=== PATIENT | female | born 1990 | race Caucasian/White ===

== ENCOUNTER 2023-09-28 13:53 | Emergency (ER) | payer OTHER ==
[2023-09-28 14:03] VITALS: BP 116/76; PULSE 96; RESP 20; TEMP 98; BMI 18.4
[2023-09-28] MEDS ORDERED: DEXAMETHASONE SOD PHOSPHATE 10 MG/1 ML VIAL ONE (15:23)
[2023-09-28] MEDS ORDERED: MAG HYDROX/AL HYDROX/SIMETH 30 ML UNIT-DOSE CUP ONE (15:23)
[2023-09-28] MEDS: MAG HYDROX/AL HYDROX/SIMETH 30 ML UNIT-DOSE CUP PO ONE (15:27)
[2023-09-28] MEDS: DEXAMETHASONE 4 MG TABLET (FP) PO ONE (15:28)
[2023-09-28 17:44] LABS: THROAT:GRP A STREP NOT DETECTED (NOTDETECTED)
== END 2023-09-28 15:28 | disposition home or self-care (01) ==
LOC: FER 13:53
DX: J02.9 Acute pharyngitis, unspecified (principal); B34.9 Viral infection, unspecified; R50.9 Fever, unspecified; R05.9 Cough, unspecified; R53.81 Other malaise; R59.0 Localized enlarged lymph nodes; Z20.822 Contact with and (suspected) exposure to COVID-19
CPT/HCPCS: 0241U-QW; 71046-TC-FY; 87651; 99284-25

== ENCOUNTER 2024-03-25 11:25 | Emergency (ER) | payer OTHER ==
[2024-03-25 11:32] VITALS: BP 115/69; PULSE 74; RESP 18; TEMP 98.2; BMI 20.7
[2024-03-25 12:32] LABS: HCG,QUALITATIVE URINE Negative
[2024-03-25 12:58] LABS: HEMATOCRIT 38.3 % (32.4-45.2); HEMOGLOBIN 12.9 G/dL (10.7-15.3); MCH 30.8 pg (25.7-33.7); MCHC 33.7 g/dl (32.0-36.0); MEAN CELL VOLUME 91.3 fl (80-96); MEAN PLT VOLUME 7.8 fl (7.5-11.1); PLATELET COUNT 217.5 10^3/uL (134-434); RBC 4.19 10^6/uL (3.60-5.2); RDW 13.1 % (11.6-15.6); WHITE BLOOD COUNT 6.7 10^3/uL (4.0-10.8)
[2024-03-25 13:02] LABS: PLATELET ESTIMATE ADEQUATE
[2024-03-25 13:08] LABS: ALBUMIN 4.8 g/dl (3.4-5.0); BILIRUBIN,TOTAL 0.7 mg/dl (0.2-1); CALCIUM 9.7 mg/dl (8.5-10.1); CREATININE 0.7 mg/dl (0.6-1.3)
[2024-03-25 14:49] LABS: HIV INTERPRETATION NEGATIVE (NEGATIVE)
== END 2024-03-25 13:55 | disposition home or self-care (01) ==
LOC: FER 11:25
DX: N93.9 Abnormal uterine and vaginal bleeding, unspecified (principal)
CPT/HCPCS: 36415; 80053; 81003; 81015; 84703; 85027; 86850; 86900; 86901; 87086; 87389; 87491; 87591; 99283-25